=== PATIENT | male | born 1995 | race Caucasian/White ===

== ENCOUNTER 2017-08-28 04:38 | Emergency (ER) | payer OTHER ==
[~2017-08-28] VITALS: Ht 188 cm; Wt 75.0 kg
[2017-08-28] MEDS ORDERED: ADDE30CA3 PO (04:46)
[2017-08-28] MEDS ORDERED: MORPHINE 4 MG/ML 1ML SYRINGE IV PRN (05:15)
[2017-08-28] MEDS ORDERED: ONDANSETRON 4MG/2ML VIAL (J2405) IV ONE (05:15)
[2017-08-28] MEDS ORDERED: NS 1,000 ML IV ONE (05:15)
[2017-08-28] MEDS ORDERED: GASTROGRAFIN SOLUTION 30ML (Q9963) As Ordered ONE (05:30)
[2017-08-28 05:35] LABS: BASO % 0.3 % (0.0-1.0); EOS # 0.3 10^3/uL (0.0-0.50); EOS % 2.9 % (0.0-3.0); IMMATURE GRANULOCYTE % 0.3 % (0-0); LYMPH # 1.6 10^3/uL (1.5-6.5); LYMPH % 15.8 % (24.0-44.0); MEAN CORPUSCULAR HEMOGLOBIN 31.3 pg (27.0-33.0); MEAN CORPUSCULAR VOLUME 91.8 fl (80.0-96.0); MONO # 0.8 10^3/uL (0.0-0.8); MONO % 8.4 % (0.0-5.0); NEUTROPHILS # 7.1 10^3/uL (1.8-7.7); NEUTROPHILS % 72.3 % (36.0-66.0); PLATELET COUNT, AUTOMATED 294 10^3/uL (150-450); RED CELL DISTRIBUTION WIDTH 12.3 % (11.5-14.5); WHITE BLOOD COUNT 9.8 10^3/uL (4.0-10.0)
[2017-08-28] MEDS ORDERED: GASTROGRAFIN SOLUTION 30ML (Q9963) PO ONE ×2 (05:45→06:00)
[2017-08-28 06:03] LABS: ALBUMIN 3.7 GM/DL (3.2-5.2); ALBUMIN/GLOBULIN RATIO 0.97 (1.00-1.93); ALKALINE PHOSPHATASE 86 U/L (45-117); ALT/SGPT 34 U/L (12-78); ANION GAP 3 MEQ/L (8-16); AST/SGOT 32 U/L (15-37); BILIRUBIN,DIRECT 0.2 MG/DL (0.0-0.2); BILIRUBIN,TOTAL 0.6 MG/DL (0.2-1.0); BLOOD UREA NITROGEN 17 MG/DL (7-18); CALCIUM LEVEL 8.6 MG/DL (8.5-10.1); CARBON DIOXIDE LEVEL 31 MEQ/L (21-32); CHLORIDE LEVEL 105 MEQ/L (98-107); CREATININE FOR GFR 0.81 MG/DL (0.70-1.30); GLUCOSE, FASTING 95 MG/DL (70-105); SODIUM LEVEL 139 MEQ/L (136-145); TOTAL PROTEIN 7.5 GM/DL (6.4-8.2)
[2017-08-28] MEDS ORDERED: ISOVUE-370 76% 100ML VIAL (Q9967) As Ordered ONE (06:35)
--- NOTE | 2017-08-28 07:20 | REPUSA ---
CLINICAL HISTORY: Abdominal pain. TECHNIQUE: Multiple axial, sagittal and coronal CT images were obtained through the abdomen and pelvi s after administration of oral and intravenous contrast material. COMMENTS: Diffuse thickening and enhancement of the terminal ileum. The liver is of uniform attenuation without mass or defect. There is no intra or extrahepatic biliary ductal dilatation. The spleen is normal. The gallbladder is within normal limits. The pancreas is of normal contour and attenuation characteristics. There is no evidence of adrenal mass. Both kidneys demonstrate prompt and equal nephrograms. The kidneys are normal in size, shape and conf iguration. There is no evidence of renal or ureteral mass. No renal or ureteral calculi are identifie d. There is no hydroureter or hydronephrosis. No evidence for appendicitis. No evidence for small or large bowel obstruction. There is no evidence of abdominal ascites or lympha denopathy. There is no evidence of intrinsic or extrinsic bladder mass. Mildly thickened bladder. There is no pe lvic ascites or lymphadenopathy. Images of the lung bases show no evidence of pleural or parenchymal mass. There are no pleural effusi ons. The bony structures are free of lytic or blastic lesions. IMPRESSION: Diffuse thickening of the terminal ileum suggestive of terminal ileitis. No perforation or abscess formation. Normal appendix. Mildly thickened bladder. Thank you for your kind referral of this patient.
[2017-08-28] MEDS ORDERED: NORCOTAB PO (08:14)
[2017-08-28] MEDS ORDERED: PRED20TA PO (08:14)
[2017-08-28] MEDS ORDERED: SULF500T2 PO (08:14)
[2017-08-28 08:20] VITALS: BP 114/64
== END 2017-08-28 08:25 | disposition home or self-care (01) ==
LOC: M ED 04:38
DX: K50.00 Crohn's disease of small intestine without complications (principal); Z79.899 Other long term (current) drug therapy
CPT/HCPCS: 74177; 80048; 80076; 83690; 85025; 87040; 96361; 96374; 96375; 99283; J2405; Q9963; Q9967

== ENCOUNTER → 2017-11-14 | Day surgery (SDC) | payer OTHER ==
[~2017-11-14] VITALS: Ht 188 cm; Wt 73.0 kg
[~2017-11-14] MED LIST: ADDE1TAB14 PO; ADDE30CA3 PO; LIDOCAINE 2% INJ 100 MG/5 ML SDV (FOR ANES.) As Ordered ONE; NORCOTAB PO; NS 1,000 ML IV ONE; PRED20TA PO; PROPOFOL 200 MG/20 ML VIAL As Ordered ONE; SULF500T2 PO
[2017-11-14 15:50] VITALS: BP 118/68
--- NOTE | 2017-11-14 16:00 | ROOR ---
Patient Name: Marv Salcedo Procedure Date: 11/14/2017 2:55 PM Date of : 1995 Age: 22 Room: [facility] Gender: Male Note Status: Finalized Procedure: Colonoscopy Indications: Abnormal CT of the GI tract Providers: Talib Diaz MD Referring MD: JUAN CARRANZA MD Requesting Provider: Medicines: Monitored Anesthesia Care Complications: No immediate complications. Procedure: Pre-Anesthesia Assessment: - Prior to the procedure, a History and Physical was performed, and patient medications and allergies were reviewed. The patient is competent. The risks and benefits of the procedure and the sedation options and risks were discussed with the patient. All questions were answered and informed consent was obtained. Patient identification and proposed procedure were verified by the physician, the nurse and the anesthesiologist in the procedure room. Mental Status Examination: alert and oriented. Airway Examination: normal oropharyngeal airway and neck mobility. Respiratory Examination: clear to auscultation. CV Examination: normal. Prophylactic Antibiotics: The patient does not require prophylactic antibiotics. Prior Anticoagulants: The patient has taken no previous anticoagulant or antiplatelet agents. ASA Grade Assessment: I - A normal, healthy patient. After reviewing the risks and benefits, the patient was deemed in satisfactory condition to undergo the procedure. The anesthesia plan was to use monitored anesthesia care (MAC). Immediately prior to administration of medications, the patient was re-assessed for adequacy to receive sedatives. The heart rate, respiratory rate, oxygen saturations, blood pressure, adequacy of pulmonary ventilation, and response to care were monitored throughout the procedure. The physical status of the patient was re-assessed after the procedure. The Colonoscope was introduced through the anus and advanced to the terminal ileum, with identification of the appendiceal orifice and IC valve. The colonoscopy was performed without difficulty. The patient tolerated the procedure well. The quality of the bowel preparation was good. The terminal ileum, ileocecal valve, appendiceal orifice, and rectum were photographed. Scope insertion time was 3 minutes. Scope withdrawal time was 9 minutes. The total duration of the procedure was 12 minutes. Findings: The perianal and digital rectal examinations were normal. The terminal ileum appeared normal. Biopsies were taken with a cold forceps for histology. Verification of patient identification for the specimen was done by the physician and nurse using the patient's name, date and medical record number. Estimated blood loss was minimal. A localized area of granular mucosa was found at the ileocecal valve. Biopsies were taken with a cold forceps for histology. The exam was otherwise normal throughout the examined colon. Impression: - The examined portion of the ileum was normal. Biopsied. - Granularity at the ileocecal valve. Biopsied. Recommendation: - Patient has a contact number available for emergencies. The signs and symptoms of potential delayed complications were discussed with the patient. Return to normal activities tomorrow. Written discharge instructions were provided to the patient. - Resume previous diet. - Continue present medications. - Await pathology results. - Repeat colonoscopy at age 52 for screening purposes. - Return to GI clinic 1 - 2 weeks. Please call GI clinic @ [phone] for apppointment date and time. - Return to primary care physician. Talib Diaz MD Talib Diaz MD 11/14/2017 4:00:12 PM This report has been signed electronically. Number of Addenda: 0 Note Initiated On: 11/14/2017 2:55 PM Estimated Blood Loss: Estimated blood loss was minimal.
== END | disposition home or self-care (01) ==
LOC: M OPP 12:36
PROVIDERS: ATTEND Internal Medicine Gastroenterology
DX: R93.3 Abnormal findings on diagnostic imaging of other parts of digestive tract (principal); K63.89 Other specified diseases of intestine; R10.9 Unspecified abdominal pain; R19.5 Other fecal abnormalities; K62.5 Hemorrhage of anus and rectum; K21.9 Gastro-esophageal reflux disease without esophagitis; R12 Heartburn; Z86.14 Personal history of Methicillin resistant Staphylococcus aureus infection; Z87.19 Personal history of other diseases of the digestive system; F90.9 Attention-deficit hyperactivity disorder, unspecified type; Z79.899 Other long term (current) drug therapy; Z80.0 Family history of malignant neoplasm of digestive organs

== ENCOUNTER → 2019-02-11 | Outpatient (CLI) | payer OTHER ==
[~2019-02-11] MED LIST changes: -LIDOCAINE 2% INJ 100 MG/5 ML SDV (FOR ANES.) As Ordered ONE; -NS 1,000 ML IV ONE; -PROPOFOL 200 MG/20 ML VIAL As Ordered ONE
== END ==
LOC: M SMT 13:22
PROVIDERS: ATTEND Advanced Practice Midwife
DX: Z13.228 Encounter for screening for other metabolic disorders (principal)

== ENCOUNTER 2019-11-12 22:57 | Emergency (ER) | payer OTHER ==
[~2019-11-12] VITALS: Ht 185.4 cm; Wt 75.0 kg
[~2019-11-12 22:57] MED LIST changes: +HYDR-3715 PO; -NORCOTAB PO
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
[2019-11-13] MEDS ORDERED: CYCL10TA PO
[2019-11-13] MEDS ORDERED: IBUPROFEN 800 MG TAB PO ONE
[2019-11-13] MEDS ORDERED: IBUP-1022 PO
[2019-11-13 00:09] VITALS: BP 122/80
== END 2019-11-13 00:25 | disposition home or self-care (01) ==
LOC: M ED 22:57
DX: R51 Headache (principal); S13.4XXA Sprain of ligaments of cervical spine, initial encounter; S39.012A Strain of muscle, fascia and tendon of lower back, initial encounter; V49.49XA Driver injured in collision with other motor vehicles in traffic accident, initial encounter; Y92.410 Unspecified street and highway as the place of occurrence of the external cause; F90.9 Attention-deficit hyperactivity disorder, unspecified type; Z79.899 Other long term (current) drug therapy

== ENCOUNTER 2020-07-27 21:23 | Emergency (ER) | payer OTHER ==
[~2020-07-27] VITALS: Ht 185.4 cm; Wt 74.5 kg
[~2020-07-27 21:23] MED LIST changes: +CYCL-707 PO; +IBUP-1022 PO
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
[2020-07-27] MEDS ORDERED: ONDANSETRON 4MG/2ML VIAL IV ONE (23:15)
[2020-07-27] MEDS ORDERED: KETOROLAC 30 MG/ML 1ML VIAL IV ONE (23:30)
[2020-07-28] MEDS ORDERED: ACETAMINOPHEN *IV* 1,000 MG in IV 1 EA IV ONE (00:15)
[2020-07-28 02:24] VITALS: BP 103/64
== END 2020-07-28 02:25 | disposition home or self-care (01) ==
LOC: M ED 21:23
DX: S06.0X0A Concussion without loss of consciousness, initial encounter (principal); S19.9XXA Unspecified injury of neck, initial encounter; S39.92XA Unspecified injury of lower back, initial encounter; V86.11XA Passenger of ambulance or fire engine injured in traffic accident, initial encounter; Y99.1 Military activity; N20.0 Calculus of kidney; Z79.899 Other long term (current) drug therapy
CPT/HCPCS: 70450; 71250; 72125; 74176; 96365; 96375; 99284; J0131; J1885; J2405

== ENCOUNTER 2021-01-25 00:36 | Emergency (ER) | payer OTHER ==
[~2021-01-25] VITALS: Ht 188 cm; Wt 78.2 kg
[2021-01-25 01:38] LABS: BASO % 0.5 % (0.0-1.0); EOS # 0.2 10^3/uL (0.0-0.5); EOS % 2.9 % (0.0-3.0); HEMATOCRIT 43.1 % (42.0-52.0); HEMOGLOBIN 14.9 g/dl (13.5-17.5); LYMPH # 2.4 10^3/uL (1.5-5.0); LYMPH % 29.4 % (24.0-44.0); MEAN CORPUSCULAR HEMOGLOBIN 30.2 pg (27.0-33.0); MEAN CORPUSCULAR HGB CONC 34.6 g/dl (32.0-36.5); MEAN CORPUSCULAR VOLUME 87.4 fl (80.0-96.0); MONO # 0.8 10^3/uL (0.0-0.8); MONO % 9.3 % (2.0-8.0); NEUTROPHILS # 4.7 10^3/uL (1.5-8.5); NEUTROPHILS % 57.7 % (36.0-66.0); PLATELET COUNT, AUTOMATED 382 10^3/uL (150-450); RED BLOOD COUNT 4.93 10^6/uL (4.30-6.10); WHITE BLOOD COUNT 8.2 10^3/uL (4.0-10.0)
[2021-01-25 01:49] LABS: INR 1.01; PROTHROMBIN TIME 13.5 SECONDS (12.5-14.3)
[2021-01-25 01:51] LABS: D-DIMER QUANT 391.92 ng/ml (<500)
[2021-01-25 02:00] LABS: ALT/SGPT 18 U/L (12-78); BILIRUBIN,DIRECT 0.1 MG/DL (0.0-0.2); BILIRUBIN,TOTAL 0.5 MG/DL (0.2-1.0); BLOOD UREA NITROGEN 26 MG/DL (7-18); CALCIUM LEVEL 9.2 MG/DL (8.5-10.1); CARBON DIOXIDE LEVEL 24 MEQ/L (21-32); CHLORIDE LEVEL 107 MEQ/L (98-107); CREATININE FOR GFR 1.11 MG/DL (0.70-1.30); GLOMERULAR FILTRATION RATE > 60.0 (>60); GLUCOSE, FASTING 98 MG/DL (70-100); POTASSIUM SERUM 3.6 MEQ/L (3.5-5.1); SODIUM LEVEL 137 MEQ/L (136-145); TOTAL PROTEIN 8.1 GM/DL (6.4-8.2)
--- NOTE | 2021-01-25 02:12 | REPVR ---
PROCEDURE INFORMATION: Exam: XR Chest Exam date and time: 01/25/2021 1:32 AM Age: 25 years old Clinical indication: Cough and dyspnea; Additional info: Dyspnea/cough TECHNIQUE: Imaging protocol: XR of the chest Views: 1 view. COMPARISON: CT Chest without contrast 2020-07-27 22:31 FINDINGS: Lungs: Unremarkable. No consolidation. Pleural spaces: Unremarkable. No pleural effusion. No pneumothorax. Heart/Mediastinum: Unremarkable. No cardiomegaly. Bones/joints: Unremarkable. IMPRESSION: No acute findings. Electronically signed by: Kishore Ellis On 01/25/2021 02:12:52 AM
[2021-01-25 02:15] LABS: RSV AMPLIFICATION NEGATIVE (NEGATIVE)
[2021-01-25] MEDS ORDERED: ISOVUE-370 76% 100ML VIAL As Ordered ONE (02:59)
[2021-01-25 03:18] LABS: CK-MB VALUE MASS < 1.0 NG/ML (<3.6); CPK CREATINE PHOSPHOKINASE 137 U/L (39-308); MB/CK RELATIVE INDEX 0.73 (< OR =4); TROPONIN I < 0.02 NG/ML (< 0.10)
--- NOTE | 2021-01-25 03:41 | REPVR ---
PROCEDURE INFORMATION: Exam: CT Angiography Chest With Contrast Exam date and time: 01/25/2021 3:06 AM Age: 25 years old Clinical indication: Shortness of breath; Additional info: Shortness of breath /elevated d-dimer TECHNIQUE: Imaging protocol: Computed tomographic angiography of the chest with contrast. 3D rendering (Not supervised by radiologist): MIP and/or 3D reconstructed images were created by the technologist. Radiation optimization: All CT scans at this facility use at least one of these dose optimization techniques: automated exposure control; mA and/or kV adjustment per patient size (includes targeted exams where dose is matched to clinical indication); or iterative reconstruction. Contrast material: ISOVUE 370; Contrast volume: 75 ml; Contrast route: INTRAVENOUS (IV); COMPARISON: CT Chest without contrast 07/27/2020 10:31 PM FINDINGS: Pulmonary arteries: Normal. No pulmonary emboli. Aorta: Unremarkable. No aortic aneurysm. No aortic dissection. 1 Bronchial tree: Visualized bronchial tree is unremarkable. Lungs: Unremarkable. No consolidation. No masses. Pleural spaces: Unremarkable. No pneumothorax. No pleural effusion. Heart: Unremarkable. No cardiomegaly. No pericardial effusion. Lymph nodes: Unremarkable. No enlarged lymph nodes. Bones/joints: Unremarkable. No acute fracture. Soft tissues: Unremarkable. IMPRESSION: Negative for pulmonary emboli. Electronically signed by: Tenisha Wheeler On 01/25/2021 03:41:52 AM
[2021-01-25 04:00] VITALS: BP 137/63
[2021-01-25] MEDS ORDERED: AZIT-12 PO (04:10)
[2021-01-25] MEDS ORDERED: ATRO0.063 INH (04:11)
--- NOTE | 2021-01-25 19:19 | ECGEPIP ---
[facility] - ED Test Date: 2021-01-25 Pat Name: DANITA PATTERSON Department: Room: - Gender: Male [employer]: ED : 1995 Requested By: BERNABE TENA Order Number: [id number] Reading MD: Red Saucedo Measurements Intervals Pearson Rate: 65 P: 74 NM: 154 QRS: 78 QRSD: 86 T: 53 QT: 384 QTc: 399 Interpretive Statements Normal sinus rhythm Possible Left atrial enlargement NONSPECIFIC ST T WAVE CHANGES NO PRIOR ECG FOR COMPARISON Electronically Signed on 01-25-2021 19:20:16 EST by Red Saucedo
== END 2021-01-25 04:33 | disposition home or self-care (01) ==
LOC: M ED 00:36
DX: J45.901 Unspecified asthma with (acute) exacerbation (principal); J20.9 Acute bronchitis, unspecified; Z79.899 Other long term (current) drug therapy
CPT/HCPCS: 36415; 71045; 71275; 80048; 80076; 82550; 82553; 84484; 85025; 85379; 85610; 87631; 93005; 99284; Q9967

== ENCOUNTER 2021-04-15 10:47 | Inpatient (IN) | payer OTHER ==
[~2021-04-15] VITALS: Ht 185.4 cm; Wt 77.3 kg
[~2021-04-15 10:47] MED LIST changes: +ATRO0.063 INH; +AZIT-12 PO
[2021-04-15 12:37] LABS: HEMATOCRIT 41.1 % (42.0-52.0); HEMOGLOBIN 14.2 g/dl (13.5-17.5); MEAN CORPUSCULAR HEMOGLOBIN 30.7 pg (27.0-33.0); MEAN CORPUSCULAR HGB CONC 34.5 g/dl (32.0-36.5); PLATELET COUNT, AUTOMATED 353 10^3/uL (150-450); RED BLOOD COUNT 4.62 10^6/uL (4.30-6.10); WHITE BLOOD COUNT 4.8 10^3/uL (4.0-10.0)
[2021-04-15] MEDS ORDERED: TOPI100T9 PO (12:43)
[2021-04-15 13:18] LABS: ACETAMINOPHEN LEVEL < 2.0 UG/ML (10.0-30.0); ALBUMIN 4.1 GM/DL (3.2-5.2); ALT/SGPT 19 U/L (12-78); BILIRUBIN,DIRECT 0.2 MG/DL (0.0-0.2); BILIRUBIN,TOTAL 0.6 MG/DL (0.2-1.0); BLOOD UREA NITROGEN 17 MG/DL (7-18); CALCIUM LEVEL 9.2 MG/DL (8.5-10.1); CARBON DIOXIDE LEVEL 28 MEQ/L (21-32); CHLORIDE LEVEL 109 MEQ/L (98-107); CREATININE FOR GFR 0.84 MG/DL (0.70-1.30); ETHYL ALCOHOL (ETHANOL) 0.007 % (0.000-0.010); GLOMERULAR FILTRATION RATE > 60.0 (>60); GLUCOSE, FASTING 97 MG/DL (70-100); POTASSIUM SERUM 4.3 MEQ/L (3.5-5.1); SALICYLATE LEVEL < 1.7 MG/DL (5.0-30.0); SODIUM LEVEL 141 MEQ/L (136-145); TOTAL PROTEIN 7.5 GM/DL (6.4-8.2)
[2021-04-15 13:19] LABS: AMPHETAMINES LEVEL URINE POSITIVE (NEGATIVE); BARBITURATES URINE NEGATIVE (NEGATIVE); BENZODIAZEPINES URINE NEGATIVE (NEGATIVE); CANNABINOIDS URINE NEGATIVE (NEGATIVE); COCAINE METABOLITE URINE NEGATIVE (NEGATIVE); METHADONE URINE NEGATIVE (NEGATIVE); OPIATES URINE NEGATIVE (NEGATIVE); PHENCYCLIDINE URINE NEGATIVE (NEGATIVE)
[2021-04-15] MEDS ORDERED: MOM 30ML SUSPENSION UDC PO PRN (16:35)
[2021-04-15] MEDS ORDERED: MAALOX 30 ML SUSP *UDC PO PRN (16:35)
[2021-04-15] MEDS ORDERED: ACETAMINOPHEN TAB 650MG DOSE (2X325MG) PO PRN (16:35)
[2021-04-15] MEDS ORDERED: ACET1TAB55 PO (17:05)
[2021-04-15] MEDS ORDERED: ADDE10TA PO (17:05)
[2021-04-15 17:25] VITALS: BP 119/72
[2021-04-16 06:20] VITALS: BP 105/60
[2021-04-16 08:55] VITALS: BP 105/60
[2021-04-16] MEDS: ADDERALL 5 MG TAB PO SCH (09:53)
[2021-04-16] MEDS: AMPHETAMINE/DEXTROAMPHETAMINE 5 MG *ER* CAPSULE (ADDERALL XR) PO SCH (09:54)
[2021-04-16] MEDS ORDERED: hydrOXYzine 50 MG TAB PO PRN (11:30)
[2021-04-16] MEDS: DULoxetine 20 MG CAP (CYMBALTA) PO SCH (11:50)
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
[2021-04-16 18:27] VITALS: BP 121/51
[2021-04-16] MEDS: TOPIRAMATE (TopAMAX) 100 MG TAB PO SCH (20:37)
[2021-04-16] MEDS: traZODone 50 MG TAB PO PRN (22:30)
[2021-04-17 06:00] VITALS: BP 112/56
[2021-04-17] MEDS: DULoxetine 20 MG CAP (CYMBALTA) PO SCH (09:21)
[2021-04-17] MEDS: AMPHETAMINE/DEXTROAMPHETAMINE 5 MG *ER* CAPSULE (ADDERALL XR) PO SCH (09:22)
[2021-04-17] MEDS: ADDERALL 5 MG TAB PO SCH (09:22)
[2021-04-17 16:53] VITALS: BP 114/59
[2021-04-17] MEDS: traZODone 50 MG TAB PO PRN (22:11)
[2021-04-17] MEDS: TOPIRAMATE (TopAMAX) 100 MG TAB PO SCH (22:11)
[2021-04-18 06:49] VITALS: BP 116/54
[2021-04-18] MEDS: DULoxetine 20 MG CAP (CYMBALTA) PO SCH (08:51)
[2021-04-18] MEDS: AMPHETAMINE/DEXTROAMPHETAMINE 5 MG *ER* CAPSULE (ADDERALL XR) PO SCH (08:51)
[2021-04-18] MEDS: ADDERALL 5 MG TAB PO SCH (08:51)
--- NOTE | 2021-04-18 12:36 | MHIPN ---
[facility] PROGRESS NOTE DATE: 04/17/2021 The patient today tells me that he is doing good, that he slept good. He has no complaints. MENTAL STATUS EXAMINATION: He is alert and oriented times three, pleasant and cooperative, verbally spontaneous. Eye contact is good. There is no formal thought disorder noted. His mood is good. Affect is restricted but appropriate to mood. He is not psychotic. He is denying suicidal or homicidal ideation. Concentration is fair. Memory is intact. Insight and judgment is poor. DIAGNOSES: Major depressive disorder, single episode, mild. Traumatic brain injury. TREATMENT PLAN: At this point, we will continue to monitor the patient for continued elevation and stabilization of his mood and resolution of any suicidal ideations.
[2021-04-18 18:14] VITALS: BP 108/63
[2021-04-18] MEDS: TOPIRAMATE (TopAMAX) 100 MG TAB PO SCH (21:23)
[2021-04-18] MEDS: traZODone 50 MG TAB PO PRN (23:04)
[2021-04-19 07:08] VITALS: BP 97/54
[2021-04-19] MEDS: ADDERALL 5 MG TAB PO SCH (08:52)
[2021-04-19] MEDS: AMPHETAMINE/DEXTROAMPHETAMINE 5 MG *ER* CAPSULE (ADDERALL XR) PO SCH (08:52)
[2021-04-19] MEDS: DULoxetine 20 MG CAP (CYMBALTA) PO SCH (08:52)
[2021-04-19] MEDS ORDERED: CYMB1CAP4 PO (09:26)
[2021-04-19] MEDS ORDERED: HYDR50TA70 PO (09:31)
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
--- NOTE | 2021-04-19 12:53 | MHIPN ---
[facility] PSYCHIATRIC PROGRESS NOTE DATE OF SERVICE: 04/18/2021 HISTORY OF PRESENT ILLNESS: The patient states "I'm doing good." He says his depression is not as bad, but he thinks it is due to the fact that being in the hospital he is not thinking about his stress at work as much. MENTAL STATUS EXAM: This patient is alert and oriented times 3, pleasant and cooperative, verbally spontaneous. Eye contact is good. Mood is okay. Affect full range and appropriate. He is not psychotic, suicidal or homicidal. Concentration and memory is good. Insight and judgment good. DIAGNOSIS: Major depression disorder. TREATMENT PLAN: The patient will continue to be monitored for continued resolution of suicidal ideation and continue stabilization of mood.
== END 2021-04-19 14:53 | disposition home or self-care (01) | DRG 885 ==
LOC: M ED 10:47 → M ED INP 16:34 → M PSY 17:20
PROVIDERS: ADMIT Psychiatry & Neurology Psychiatry; ATTEND Psychiatry & Neurology Psychiatry
DX: F32.1 Major depressive disorder, single episode, moderate (principal); R45.851 Suicidal ideations; G43.909 Migraine, unspecified, not intractable, without status migrainosus; Z79.899 Other long term (current) drug therapy; F90.9 Attention-deficit hyperactivity disorder, unspecified type